=== PATIENT | female | born 1940 | race Caucasian/White ===

== ENCOUNTER → 2018-01-13 | Outpatient (CLI) | payer MEDICARE, OTHER ==
--- NOTE | 2018-01-13 16:46 | Diagnostic Imaging Report ---
PROCEDURE:TRANSVAGINAL ULTRASOUND COMPARISON:None. INDICATIONS:Right Adnexal Mass TECHNIQUE: Grayscale transverse and sagittal transabdominal and transvaginal images were obtained of the pelvis. Transvaginal imaging was medically necessary to better assess the endometrium. FINDINGS: 77 year-old female postmenopausal patient for 20 years UTERUS: 6.3 x 2.1 x 3.1 cm (transabdominal measurement). No focal lesions. Normal echogenicity. ENDOMETRIUM: 0.2 cm, atrophic. Homogeneous echotexture, without focal thickening. RIGHT OVARY: 2.8 x 2.0 x 1.8 cm. No focal lesions. LEFT OVARY: 3.1 x 1.5 x 2.2 cm. 1.5 x 1.2 x 1.4 cm cystic, anechoic lesion. There is no free fluid within the pelvis. No adnexal masses. Markedly distended bladder with multiple internal echoes suggesting debris. The bladder remained overfilled despite 2 instances of voiding. First post void bladder volume 851.16 mL. Second post void bladder volume 783.76 mL CONCLUSION: 1. No definite adnexal mass is identified. 2. Markedly distended bladder with multiple internal echoes suggesting debris. The bladder remained overfilled/distended despite 2 instances of voiding. Correlate for infection and bladder outlet obstruction. Anthony Estevez M.D. Dictated by: Anthony Estevez M.D. on 01/13/2018 at 16:51 Electronically approved by: Anthony Estevez M.D. on 01/13/2018 at 16:51
--- NOTE | 2018-01-13 16:46 | Diagnostic Imaging Report ---
PROCEDURE:US PELVIS COMPLETE NON OB COMPARISON:None. INDICATIONS:Right Adnexal Mass CONCLUSION: Please refer to transvaginal ultrasound performed at the same date and time for full dictated report. Anthony Estevez M.D. Dictated by: Anthony Estevez M.D. on 01/13/2018 at 16:51 Electronically approved by: Anthony Estevez M.D. on 01/13/2018 at 16:51
== END ==
LOC: US 13:05
PROVIDERS: ATTEND Specialist
DX: R19.09 Other intra-abdominal and pelvic swelling, mass and lump (principal)
CPT/HCPCS: 76830; 76856